=== PATIENT | female | born 1985 | race Caucasian/White ===

== ENCOUNTER 2020-01-29 12:26 | Emergency (ER) | payer BC, MEDICAID ==
[2020-01-29] MEDS ORDERED: DIPHENHYDRAMINE HCL 50 MG/ML VIAL IV ONE (12:34)
[2020-01-29] MEDS ORDERED: FAMOTIDINE INJ/PF 20 MG/2 ML SDV IV ONE (12:34)
[2020-01-29] MEDS ORDERED: METHYLPREDNISOLONE INJ 125 MG/2 ML SDV IV ONE (12:34)
--- NOTE | 2020-01-29 12:36 | ER Document Report ---
ED Medical Screen (RME) - General Chief Complaint: Allergic Reaction Stated Complaint: POSSIBLE ALLERGIC REACTION Time Seen by Provider: 01/29/20 12:30 Primary Care Provider: KATJA VELARDE MD [Primary Care Provider] - Follow up as needed - [facility] Notes: 01/29/20 12:35 34-year-old female presents to the emergency room for complaining of an allergic reaction where she feels like she is having difficulty breathing and itching all over for the last 4 days. Patient states she tried a new lotion and thinks this may be an allergic reaction from this. Patient tried hydroxyzine which she takes daily for anxiety without any relief. Has not used her EpiPen. Patient is on the Nexplanon for control. Patient able to speak without any issues. I have greeted and performed a rapid initial assessment of this patient. A comprehensive ED assessment and evaluation of the patient, analysis of test results and completion of the medical decision making process will be conducted by additional ED providers. PHYSICAL EXAMINATION: GENERAL: Well-appearing, well-nourished and in no acute distress. HEAD: Atraumatic, normocephalic. EYES: Pupils equal round extraocular movements intact, conjunctiva are normal. Uvula midline, able to control secretions NECK: Normal range of motion CV: s1, s2 regular LUNGS: No respiratory distress Musculoskeletal: Normal range of motion NEUROLOGICAL: Normal speech, normal gait. SKIN: Warm, Dry, normal turgor, no rashes or lesions noted. - Related Data Allergies/Adverse Reactions: No Known Allergies Allergy (Unverified 01/29/20 12:34) Physical Exam - Vital signs Vitals: Temp Pulse Resp BP Pulse Ox 97.8 F 93 20 132/87 H 98 01/29/20 12:30 01/29/20 12:30 01/29/20 12:30 01/29/20 12:30 01/29/20 12:30 Course - Vital Signs Vital signs: Temp Pulse Resp BP Pulse Ox 97.8 F 93 20 132/87 H 98 01/29/20 12:30 01/29/20 12:30 01/29/20 12:30 01/29/20 12:30 01/29/20 12:30 Doctor's Discharge - Discharge Referrals: KATJA VELARDE MD [Primary Care Provider] - Follow up as needed
--- NOTE | 2020-01-29 12:42 | ER Document Report ---
ED General - General Chief Complaint: Allergic Reaction Stated Complaint: POSSIBLE ALLERGIC REACTION Time Seen by Provider: 01/29/20 12:30 Primary Care Provider: KATJA VELARDE MD [NO LOCAL MD] - Follow up as needed Information source: Patient Notes: Patient is a 34-year-old female presenting to the emergency department chief complaint of possible allergic reaction. Patient states she has been dealing with unspecified allergies for over a year and a half she recently moved to [place] from [place] in October. Patient started using a new skin lotion on Sunday and shortly thereafter started having this sensation of shortness of breath and she googled to find out what symptoms or for her throat closing. Patient presents to the emergency department for further evaluation and treatment. TRAVEL OUTSIDE OF THE [place] IN LAST 30 DAYS: No - HPI Onset: Last week Onset/Duration: Gradual, Persistent Quality of pain: No pain Severity: None Pain Level: 0 Associated symptoms: Allergy/hay fever Exacerbated by: Denies Relieved by: Denies Similar symptoms previously: Yes Recently seen / treated by doctor: Yes - Related Data Allergies/Adverse Reactions: No Known Allergies Allergy (Unverified 01/29/20 12:34) Past Medical History - General Information source: Patient - Social History Smoking Status: Never Smoker Chew tobacco use (# tins/day): No Frequency of alcohol use: None Drug Abuse: None Family History: Reviewed & Not Pertinent Patient has suicidal ideation: No Patient has homicidal ideation: No - Medical History Medical History: Negative Other: Patient is had multiple ear infections resulting in the use of hearing aids since 1 years old Past Surgical History: Reports: Hx Myringotomy Review of Systems - Review of Systems Notes: REVIEW OF SYSTEMS: CONSTITUTIONAL : Denies fever, chills, or sweats. Denies recent illness. EENT: Denies eye, ear pain denies nasal or sinus congestion. Per HPI CARDIOVASCULAR: Denies chest pain. RESPIRATORY: Denies cough, cold, or chest congestion. Denies shortness of breath, difficulty breathing, or wheezing. GASTROINTESTINAL: Denies abdominal pain. Denies nausea, vomiting, or diarrhea. Denies constipation. GENITOURINARY: Denies difficulty urinating, painful urination, burning, frequency, or blood in urine. MUSCULOSKELETAL: Denies neck or back pain or joint pain or swelling. SKIN: Denies rash or skin lesions. HEMATOLOGIC : Denies easy bruising or bleeding. NEUROLOGICAL: Denies altered mental status or loss of consciousness. Denies headache. Denies weakness or paralysis or loss of use of either side. Denies problems with gait or speech. Denies sensory or motor loss. PSYCHIATRIC: Denies suicidal or homicidal ideations 10 Systems are negative unless otherwise specified above Physical Exam - Vital signs Vitals: Temp Pulse Resp BP Pulse Ox 97.8 F 93 20 132/87 H 98 01/29/20 12:30 01/29/20 12:30 01/29/20 12:30 01/29/20 12:30 01/29/20 12:30 - Notes Notes: PHYSICAL EXAMINATION: GENERAL: Well-appearing, well-nourished and in no acute distress. HEAD: Atraumatic, normocephalic. EYES: Pupils equal round and reactive to light, extraocular movements intact, sclera anicteric, conjunctiva are normal. ENT: nares patent, oropharynx clear without exudates. Moist mucous membranes. No signs of obstruction erythema edema. NECK: Normal range of motion, supple without lymphadenopathy, no appreciable JVD LUNGS: Lungs clear to auscultation bilaterally and equal. No wheezes rales or rhonchi. HEART: Regular rate and rhythm without murmurs ABDOMEN: Soft, nontender, normal bowel sounds. No guarding, no rebound. No masses appreciated. EXTREMITIES: Active full range of motion, no pitting or edema. No cyanosis. 2+ pulses x4 NEUROLOGICAL: No focal neurological deficits. Moves all extremities spontaneously and on command. SKIN: Warm, Dry, and intact. Normal turgor, no rashes or lesions noted. Course - Re-evaluation Re-evalutation: 01/29/20 13:02 Labs were ordered by midlevel in triage. Patient was ordered Solu-Medrol, Solu- Medrol and Pepcid which she received prior to my exam. Patient is alert and oriented and in no acute distress. 01/29/20 14:43 On reevaluation the patient is resting comfortably in hospital bed. The patient and I did review her laboratory and radiologic results she is aware of the elevated liver enzymes and my recommendation is to follow-up with her primary care provider for further evaluation of same. I do not objectively see any signs of allergic reaction patient has been treated and other than being sleepy states that she no longer feels like her throat is closing. Patient will be discharged home in stable condition given a prescription for Pepcid. - Vital Signs Vital signs: Temp Pulse Resp BP Pulse Ox 97.8 F 93 15 116/83 98 01/29/20 12:30 01/29/20 12:30 01/29/20 13:01 01/29/20 13:01 01/29/20 13:01 - Laboratory Result Diagrams: 01/29/20 12:44 01/29/20 12:44 Laboratory results interpreted by me: 01/29/20 12:44 Sodium 136.9 L Carbon Dioxide 20 L BUN 6 L Direct Bilirubin 0.5 H AST 66 H ALT 160 H Alkaline Phosphatase 136 H - Diagnostic Test Radiology reviewed: Reports reviewed Discharge - Discharge Clinical Impression: Elevated liver enzymes Allergic reaction Qualifiers: Encounter type: subsequent encounter Qualified Code(s): T78.40XD - Allergy, unspecified, subsequent encounter Condition: Stable Disposition: HOME, SELF-CARE Prescriptions: Famotidine [Pepcid 20 mg Tablet] 20 mg PO BID #12 tablet Forms: Return to Work Referrals: KATJA VELARDE MD [NO LOCAL MD] - Follow up as needed
[2020-01-29 12:58] LABS: ABSOLUTE BASOPHILS # (AUTO) 0.1 10^3/uL (0.0-0.2); ABSOLUTE EOSINOPHILS # (AUTO) 0.2 10^3/uL (0.0-0.6); ABSOLUTE LYMPHOCYTES (AUTO) 2.4 10^3/uL (0.5-4.7); ABSOLUTE MONOCYTES (AUTO) 0.8 10^3/uL (0.1-1.4); ABSOLUTE NEUT (AUTO) 3.5 10^3/uL (1.7-8.2); HEMATOCRIT 40.4 % (36.0-47.0); HEMOGLOBIN 14.4 g/dL (12.0-15.5); LYMPHOCYTES % (AUTO) 33.8 % (13-45); MEAN CORPUSCULAR HEMOGLOBIN 31.1 pg (27.0-33.4); MEAN CORPUSCULAR HGB CONC 35.6 g/dL (32.0-36.0); MEAN CORPUSCULAR VOLUME 87 fl (80-97); MONOCYTES % (AUTO) 11.4 % (3-13); PLATELET COUNT 241 10^3/uL (150-450); RED BLOOD COUNT 4.62 10^6/uL (3.72-5.28); RED CELL DISTRIBUTION WIDTH 13.7 % (11.5-14.0); SEGMENTED NEUTROPHILS % (AUTO) 50.8 % (42-78); TOTAL CELLS COUNTED % (AUTO) 100 %
[2020-01-29 13:12] LABS: ALBUMIN 4.8 g/dL (3.5-5.0); ALKALINE PHOSPHATASE 136 U/L (38-126); ANION GAP 13 (5-19); ASPARTATE AMINO TRANSFERASE 66 U/L (14-36); BILIRUBIN,DIRECT 0.5 mg/dL (0.0-0.4); BLOOD UREA NITROGEN 6 mg/dL (7-20); CALCIUM 9.8 mg/dL (8.4-10.2); CARBON DIOXIDE 20 mmol/L (22-30); CHLORIDE 104 mmol/L (98-107); GLUCOSE 107 mg/dL (75-110); POTASSIUM 4.1 mmol/L (3.6-5.0); TOTAL PROTEIN 7.9 g/dL (6.3-8.2)
--- NOTE | 2020-01-29 13:38 | RADIOLOGY REPORT (SQ) ---
EXAM DESCRIPTION: CHEST 2 VIEWS IMAGES COMPLETED DATE/TIME: 01/29/2020 1:14 pm REASON FOR STUDY: difficulty breathing COMPARISON: None. EXAM PARAMETERS: NUMBER OF VIEWS: two views TECHNIQUE: Digital Frontal and Lateral radiographic views of the chest acquired. RADIATION DOSE: NA LIMITATIONS: none FINDINGS: LUNGS AND PLEURA: No opacities, masses or pneumothorax. No pleural effusion. MEDIASTINUM AND HILAR STRUCTURES: No masses or contour abnormalities. HEART AND VASCULAR STRUCTURES: Heart normal size. No evidence for failure. BONES: No acute findings. HARDWARE: None in the chest. OTHER: No other significant finding. IMPRESSION: NO ACUTE RADIOGRAPHIC FINDING IN THE CHEST. TECHNICAL DOCUMENTATION: JOB ID: [id number] 2010 [email or web address]- All Rights Reserved Reading location - IP/workstation name: [email or web address]
[2020-01-29 15:09] VITALS: BP 121/77
== END 2020-01-29 15:10 | disposition home or self-care (01) ==
LOC: ER 12:26
DX: T78.40XD Allergy, unspecified, subsequent encounter (principal); R79.89 Other specified abnormal findings of blood chemistry
CPT/HCPCS: 99283; 96374; 96375; 36415; 85025; 80053; 71046; J1200; J2930; S0028